=== PATIENT | male | born 1980 | race Caucasian/White ===

== ENCOUNTER 2023-03-28 17:23 | Emergency (ER) | payer MEDICAID ==
[~2023-03-28] VITALS: Ht 185.4 cm; Wt 81.0 kg
[~2023-03-28 17:23] MED LIST: ASPI-1265 PO; DABI150C PO; FOLI-43 PO; FURO-150 PO; MULT-785 PO; THIA100T70 PO
--- NOTE | 2023-03-28 18:04 | NUR ---
RN CALLED POISON CONTROL AND SPOKE WITH REP DOUGLASS TO REPORT PT OD. RN NOTIFIED THEM THAT THE PT STATES HE TOOK 30 TABLETS OF ELIQUIS EQUALING 150MG. PT ALSO REPORTS DRINKING WHISKEY AND BEER. PT HAS NO S/S ACTIVE BLEEDING AT THIS TIME. PER RAFAT PT SHOULD BE MONITORED FOR AT LEAST 24 HOURS AND MAYBE MORE IF THERE ARE BLEEDING COMPLICATIONS. IT WAS ALSO RECOMMENDED THAT PT GET A HEAD CT/RELOCATION COMMISSIONER/COAG LABS AND CBC Q6 HRS. IT WAS RECOMMENDED THAT IF THERE ARE SX OF ACTIVE BLEEDING ANDEXANET CHANTALE BE GIVEN HOWEVER THE HOSPITAL DOES NOT CARRY THIS MED SO THE ALTERNATIVE MED THAT CAN BE GIVEN IS ACTIVATED PROTHROMBIN COMPLEX CONCENTRATES AND FFP. POISON CONTROL ADVISED TO CALL THEM BACK IF PT HAS SX OF ACTIVE UNCONTROLLABLE BLEEDING. RN NOTIFIED DR IRAHETA OF THEIR RECOMMENDATIONS.
[2023-03-28 18:07] LABS: BASOPHILS # (AUTO) 0.1 X10'3 (0-0.2); BASOPHILS % (AUTO) 1.1 % (0-1); EOSINOPHILS # (AUTO) 0.2 X10'3 (0-0.9); EOSINOPHILS % (AUTO) 2.2 % (0-6); HEMATOCRIT 42.8 % (42.0-52.0); HEMOGLOBIN 14.2 g/dl (14.0-17.9); LYMPHOCYTES # (AUTO) 2.4 X10'3 (1.1-4.8); LYMPHOCYTES % (AUTO) 28.7 % (21-51); MEAN CORPUSCULAR HEMOGLOBIN 34.7 PG (27.0-31.0); MEAN CORPUSCULAR HGB CONC 33.2 g/dL (33.0-36.5); MEAN CORPUSCULAR VOLUME 104.5 FL (78-98); MEAN PLATELET VOLUME 6.3 FL (7.4-10.4); MONOCYTES # (AUTO) 0.5 X10'3 (0-0.9); MONOCYTES % (AUTO) 5.5 % (2-12); NEUTROPHILS # (AUTO) 5.2 X10'3 (1.8-7.7); NEUTROPHILS % (AUTO) 62.5 % (42-75); PLATELET COUNT 260 X10'3 (140-440); RED CELL DISTRIBUTION WIDTH 17.1 % (11.5-14.5); WHITE BLOOD COUNT 8.4 X10'3 (4.5-11.0)
[2023-03-28 18:09] LABS: BILIRUBIN,URINE NEGATIVE (Neg); CLARITY,URINE CLEAR (Clear); COLOR,URINE STRAW (Yellow); GLUCOSE, URINE NEGATIVE (Neg); KETONES,URINE NEGATIVE (Neg); LEUKOCYTE ESTERASE ,URINE NEGATIVE (Neg); NITRITES, URINE NEGATIVE (Neg); OCCULT BLOOD,URINE NEGATIVE (Neg); PROTEIN,URINE NEGATIVE (Neg); UROBILINOGEN,URINE 0.2 E.U/dL (0.2-1.0)
[2023-03-28 18:10] LABS: UA COLLECTION TYPE STRAIGHT CATH
[2023-03-28 18:15] LABS: APTT 38 SECONDS (22-32); INR 1.5 INR; PROTHROMBIN TIME 15.9 SECONDS (9.0-12.0)
[2023-03-28 18:20] LABS: ALANINE AMINOTRANSFERASE 13 U/L (12-78); ALBUMIN 3.2 G/DL (3.4-5.0); ALBUMIN/GLOBULIN RATIO 1.2 (1.1-1.5); ALKALINE PHOSPHATASE 64 IU/L (46-116); ANION GAP 14 (8-16); ASPARTATE AMINO TRANSFERASE 14 U/L (10-37); BILIRUBIN,TOTAL 0.3 MG/DL (0.1-1.0); BLOOD UREA NITROGEN 5 MG/DL (7-18); BUN/CREATININE RATIO 6.1 (10.0-20.0); CALCIUM 7.9 MG/DL (8.5-10.1); CHLORIDE 108 MMOL/L (99-107); CREATININE 0.82 MG/DL (0.60-1.10); GLUCOSE 99 MG/DL (70-104); POTASSIUM 3.4 MMOL/L (3.5-5.1); SODIUM 144 MMOL/L (135-145); TOTAL CARBON DIOXIDE 22.4 MMOL/L (24-32); TOTAL PROTEIN 5.9 G/DL (6.4-8.2); eCRCL 130 ML/MIN; eGFR > 90 ML/MIN
[2023-03-28 18:22] LABS: SALICYLATE 4.2 MG/DL (4.0-20.0)
[2023-03-28 18:30] LABS: ETHANOL 0.319 GM/DL (0.0-0.010)
[2023-03-28 18:36] LABS: URINE AMPHETAMINE SCREEN NEGATIVE (Neg); URINE BARBITUATE SCREEN NEGATIVE (Neg); URINE BENZODIAZEPINES SCREEN NEGATIVE (Neg); URINE CANNABINOID SCREEN POSITIVE (Neg); URINE COCAINE SCREEN NEGATIVE (Neg); URINE METHADONE SCREEN NEGATIVE (Neg); URINE OPIATE SCREEN NEGATIVE (Neg); URINE PHENCYCLIDINE SCREEN NEGATIVE (Neg)
[2023-03-28] MEDS ORDERED: normal saline 1000ML IV soln IVB ONE (18:40)
[2023-03-28 18:50] LABS: ACETAMINOPHEN < 2.0 UG/ML (10-30)
--- NOTE | 2023-03-28 18:53 | NUR ---
Patient resting on gurney, hostile still just wants everyone to leave him alone so he can just go to sleep somewhere and .
--- NOTE | 2023-03-28 19:11 | NUR ---
PT STATED THAT HE "TOOK A BUNCH OF PILLS" RN ASKED WHAT PILLS AND HE SAID ELIQUIS AND GABAPENTIN. DR IRAHETA AT BEDSIDE AND REQUESTED RN CALL POISON CONTROL AND UPDATE THEM. RN CALLED POISON CONTROL AND SPOKE WITH REP DOUGLASS. PER RAFAT RISK FOR PT BEING DROWSY AND HYPOTENSION. POSION CONTROL RECOMMENDED RESIDENTIAL SALES MANAGER AND FLUIDS/PRESSORS IF PT BECOMES HYPOTENSIVE. RN NOTIFIED NIKKIE MAIN AND DR IRAHETA.
--- NOTE | 2023-03-28 20:27 | NUR ---
Patient to CT
--- NOTE | 2023-03-28 20:48 | NUR ---
Patient's sister "Etta" cld inquiring about him, the patient gave me permission to talk with her. I advised the patient was stable and on a mental health hold.
[2023-03-28] MEDS ORDERED: haloperidol lactate 5mg/ml inj IM ONE (20:55)
[2023-03-28] MEDS ORDERED: traMADol 50MG tablet PO ONE (21:00)
[2023-03-28] MEDS ORDERED: LORazepam 2 mg/ml vial IV ONE (21:05)
--- NOTE | 2023-03-28 22:00 | NUR ---
Patient continues to be verbally disruptive and wants to be up walking around despite being unsteady on his feet. He has been given both Ativan and Haldol now, a hospital bed had been put in room. Security has been monitoring the patient.
[2023-03-29 00:18] LABS: HEMATOCRIT 39.8 % (42.0-52.0); HEMOGLOBIN 13.5 g/dl (14.0-17.9); MEAN CORPUSCULAR HEMOGLOBIN 35.8 PG (27.0-31.0); MEAN CORPUSCULAR VOLUME 105.3 FL (78-98); MEAN PLATELET VOLUME 6.4 FL (7.4-10.4); PLATELET COUNT 256 X10'3 (140-440); RED BLOOD COUNT 3.78 X10'6 (4.70-6.10); RED CELL DISTRIBUTION WIDTH 18.1 % (11.5-14.5); WHITE BLOOD COUNT 6.3 X10'3 (4.5-11.0)
--- NOTE | 2023-03-29 06:00 | NUR ---
Assumed care of Pt. He is laying down resting. Pt is calm.
--- NOTE | 2023-03-29 07:15 | NUR ---
Pt laying down resting, Pt educated to POC, Pt in agreement.
[2023-03-29 07:57] LABS: BASOPHILS # (AUTO) 0.1 X10'3 (0-0.2); BASOPHILS % (AUTO) 0.9 % (0-1); EOSINOPHILS # (AUTO) 0.2 X10'3 (0-0.9); HEMOGLOBIN 13.9 g/dl (14.0-17.9); LYMPHOCYTES # (AUTO) 2.2 X10'3 (1.1-4.8); LYMPHOCYTES % (AUTO) 24.8 % (21-51); MEAN CORPUSCULAR HGB CONC 33.1 g/dL (33.0-36.5); MEAN PLATELET VOLUME 6.7 FL (7.4-10.4); MONOCYTES # (AUTO) 0.7 X10'3 (0-0.9); MONOCYTES % (AUTO) 7.5 % (2-12); NEUTROPHILS # (AUTO) 5.7 X10'3 (1.8-7.7); NEUTROPHILS % (AUTO) 64.8 % (42-75); PLATELET COUNT 259 X10'3 (140-440); RED BLOOD COUNT 3.96 X10'6 (4.70-6.10); RED CELL DISTRIBUTION WIDTH 17.7 % (11.5-14.5); WHITE BLOOD COUNT 8.8 X10'3 (4.5-11.0)
--- NOTE | 2023-03-29 08:36 | NUR ---
Pt in bed laying down resting w/ his eyes closed. No statements of harming himself. Pt denied any SI.
--- NOTE | 2023-03-29 08:38 | NUR ---
Pt sitting on the side of the bed eating, calm and cooperative.
[2023-03-29 09:21] LABS: COVID19 ANTIGEN BINAX NEGATIVE (NEGATIVE)
--- NOTE | 2023-03-29 09:40 | NUR ---
Patient ambulatory from the main ER to ER overflow accompanied by RN. He changed into green unit scrubs and was receptive to 1:1 assessment. Pt acknowledges overdose attempt yet denies SI at this time. Pt endorsing that he "had a bad day yesterday". Pt stating that he wants to go home and misses his dogs. He lives with his uncle and his cousin and is able to return to their home. He is noted to be guarded and irritable during assessment. Pt denies HI, AH or VH. He is noted sitting in his room at this time with no s/s of distress. Will continue to monitor.
--- NOTE | 2023-03-29 09:50 | NUR ---
Packet faxed to [facility]ad office
[2023-03-29] MEDS ORDERED: potassium Cl 20 mEq SR tablet PO STA (10:16)
[2023-03-29] MEDS ORDERED: LORazepam 1 MG tablet PO ONE (10:20)
--- NOTE | 2023-03-29 10:34 | NUR ---
Car ANDERSEN, evaluating patient.
[2023-03-29 10:36] LABS: INR 1.2 INR
--- NOTE | 2023-03-29 11:12 | NUR ---
Met with patient in regards to substance/alcohol use and to see if patient was interested in resources for treatment options. Patient is interested in resources. I gave patient a card for [facility], a list of resources and my card to calm me if he has any questions.
[2023-03-29] MEDS ORDERED: acetaminophen 325mg tablet PO ONE (11:15)
[2023-03-29 11:20] VITALS: BP 150/96; PULSE 72; RESP 16; TEMP 98.2; O2SAT 100
--- NOTE | 2023-03-29 11:30 | NUR ---
20G PERIPHERAL IV REMOVED FROM PT'S LEFT FOREARM. CANNULA TIP INTACT UPON REMOVAL. NO REDNESS OR SWELLING AT IV SITE. PT TOLERATED WELL WITH NO C/O PAIN.
== END 2023-03-29 11:40 | disposition home or self-care (01) ==
LOC: ER 17:23
DX: T42.6X1A Poisoning by other antiepileptic and sedative-hypnotic drugs, accidental (unintentional), initial encounter (principal); Z20.822 Contact with and (suspected) exposure to COVID-19; T45.511A Poisoning by anticoagulants, accidental (unintentional), initial encounter; F10.129 Alcohol abuse with intoxication, unspecified; I50.9 Heart failure, unspecified; F17.200 Nicotine dependence, unspecified, uncomplicated; F12.90 Cannabis use, unspecified, uncomplicated; Z91.013 Allergy to seafood; Z79.82 Long term (current) use of aspirin; Z79.899 Other long term (current) drug therapy; Y92.89 Other specified places as the place of occurrence of the external cause; Y90.9 Presence of alcohol in blood, level not specified
CPT/HCPCS: 36415; 70450; 80053; 80305; 80320; 80329; 81003; 85025; 85027; 85610; 85730; 87811; 93005; 96361; 96372; 96374; 99285; A6258; J1630; J2060; J7030; A6449; C1758

== ENCOUNTER 2023-10-14 16:54 | Emergency (ER) | payer MEDICAID ==
[~2023-10-14] VITALS: Ht 185.4 cm; Wt 77.1 kg
[2023-10-14 16:55] VITALS: BP 126/90; PULSE 115; RESP 16; TEMP 97.7; O2SAT 98
[2023-10-14 17:27] LABS: BASOPHILS # (AUTO) 0.1 X10'3 (0-0.2); EOSINOPHILS # (AUTO) 0.1 X10'3 (0-0.9); EOSINOPHILS % (AUTO) 1.4 % (0-6); HEMATOCRIT 49.9 % (42.0-52.0); HEMOGLOBIN 17.1 g/dl (14.0-17.9); LYMPHOCYTES # (AUTO) 2.2 X10'3 (1.1-4.8); LYMPHOCYTES % (AUTO) 22.3 % (21-51); MEAN CORPUSCULAR HEMOGLOBIN 38.1 PG (27.0-31.0); MEAN CORPUSCULAR HGB CONC 34.3 g/dL (33.0-36.5); MEAN CORPUSCULAR VOLUME 110.9 FL (78-98); MEAN PLATELET VOLUME 6.6 FL (7.4-10.4); MONOCYTES # (AUTO) 0.9 X10'3 (0-0.9); MONOCYTES % (AUTO) 8.5 % (2-12); NEUTROPHILS # (AUTO) 6.7 X10'3 (1.8-7.7); NEUTROPHILS % (AUTO) 66.8 % (42-75); PLATELET COUNT 290 X10'3 (140-440); RED BLOOD COUNT 4.49 X10'6 (4.70-6.10); RED CELL DISTRIBUTION WIDTH 13.9 % (11.5-14.5)
[2023-10-14 17:49] LABS: ANION GAP 12 (8-16); BLOOD UREA NITROGEN 5 MG/DL (7-18); BUN/CREATININE RATIO 5.6 (10.0-20.0); CALCIUM 8.4 MG/DL (8.5-10.1); CHLORIDE 96 MMOL/L (99-107); CREATININE 0.89 MG/DL (0.60-1.10); GLUCOSE 145 MG/DL (70-104); POTASSIUM 3.2 MMOL/L (3.5-5.1); PRO BRAIN NATRIURETIC PEPTIDE 41 PG/ML (0-125); SODIUM 132 MMOL/L (135-145); TOTAL CARBON DIOXIDE 23.8 MMOL/L (24-32); eCRCL 116 ML/MIN; eGFR > 90 ML/MIN
[2023-10-14 17:55] LABS: PLATELET ESTIMATE NORMAL
[2023-10-15] MEDS ORDERED: ONDA8TAB13 PO ×3 (20:57→21:16)
[2023-10-15] MEDS ORDERED: SUMA50TA PO ×3 (20:57→21:16)
== END 2023-10-14 20:21 | disposition home or self-care (01) ==
LOC: ER 16:55
DX: R51.9 Headache, unspecified (principal); R07.9 Chest pain, unspecified
CPT/HCPCS: 36415; 71045; 80048; 83880; 84484; 85008; 85025; 93005; 99285

== ENCOUNTER → 2023-10-15 | Emergency (ER) | payer MEDICAID ==
[~2023-10-15] VITALS: Ht 185.4 cm; Wt 76.3 kg
[~2023-10-15] MED LIST changes: +ONDA8TAB13 PO; +SUMA50TA PO; +diphenhydrAMINE 50 mg/ml inj IV ONE; +ketorolac trometh. 30mg/ml inj. IV ONE; +metoclopramide 5 mg/ml inj IV ONE; +normal saline 1000ml 1,000 ML IV ONE
[2023-10-15 17:44] LABS: BASOPHILS # (AUTO) 0.1 X10'3 (0-0.2); EOSINOPHILS # (AUTO) 0.2 X10'3 (0-0.9); LYMPHOCYTES # (AUTO) 2.7 X10'3 (1.1-4.8); MONOCYTES # (AUTO) 0.7 X10'3 (0-0.9); NEUTROPHILS # (AUTO) 5.7 X10'3 (1.8-7.7); WHITE BLOOD COUNT 9.4 X10'3 (4.5-11.0)
[2023-10-15 17:46] LABS: BASOPHILS % (AUTO) 1.1 % (0-1); EOSINOPHILS % (AUTO) 2.6 % (0-6); HEMATOCRIT 50.3 % (42.0-52.0); HEMOGLOBIN 17.4 g/dl (14.0-17.9); LYMPHOCYTES % (AUTO) 28.4 % (21-51); MEAN CORPUSCULAR HEMOGLOBIN 38.3 PG (27.0-31.0); MEAN CORPUSCULAR HGB CONC 34.5 g/dL (33.0-36.5); MEAN CORPUSCULAR VOLUME 110.8 FL (78-98); MEAN PLATELET VOLUME 6.5 FL (7.4-10.4); NEUTROPHILS % (AUTO) 60.9 % (42-75); PLATELET COUNT 294 X10'3 (140-440); RED BLOOD COUNT 4.54 X10'6 (4.70-6.10); RED CELL DISTRIBUTION WIDTH 13.8 % (11.5-14.5)
[2023-10-15 18:07] LABS: ALBUMIN 4.3 G/DL (3.4-5.0); ANION GAP 11 (8-16); BLOOD UREA NITROGEN 4 MG/DL (7-18); BUN/CREATININE RATIO 4.9 (10.0-20.0); CALCIUM 8.8 MG/DL (8.5-10.1); CHLORIDE 97 MMOL/L (99-107); CREATININE 0.81 MG/DL (0.60-1.10); GLUCOSE 106 MG/DL (70-104); POTASSIUM 3.6 MMOL/L (3.5-5.1); PRO BRAIN NATRIURETIC PEPTIDE < 30 PG/ML (0-125); SODIUM 134 MMOL/L (135-145); TOTAL CARBON DIOXIDE 26.1 MMOL/L (24-32); eCRCL 126 ML/MIN; eGFR > 90 ML/MIN
[2023-10-15 21:36] VITALS: BP 117/74; PULSE 79; RESP 12; TEMP 97.6; O2SAT 97
== END | disposition home or self-care (01) ==
LOC: ER 15:47
DX: G43.909 Migraine, unspecified, not intractable, without status migrainosus (principal); R07.9 Chest pain, unspecified; I11.0 Hypertensive heart disease with heart failure; F12.10 Cannabis abuse, uncomplicated; Z79.899 Other long term (current) drug therapy
CPT/HCPCS: 36415; 70450; 71045; 80048; 83880; 84484; 85025; 93005; 96374; 96375; 99285; J1200; J1885; J2765; J7030

== ENCOUNTER 2023-11-25 08:51 | Outpatient (CLI) | payer MEDICAID ==
[~2023-11-25 08:51] MED LIST changes: -diphenhydrAMINE 50 mg/ml inj IV ONE; -ketorolac trometh. 30mg/ml inj. IV ONE; -metoclopramide 5 mg/ml inj IV ONE; -normal saline 1000ml 1,000 ML IV ONE
== END 2023-11-25 23:59 | disposition home or self-care (01) ==
LOC: VAS 08:51
PROVIDERS: ATTEND Family Medicine
DX: M79.605 Pain in left leg (principal)
CPT/HCPCS: 93971

== ENCOUNTER 2025-02-28 09:19 | Outpatient (CLI) | payer MEDICAID ==
[~2025-02-28 09:19] MED LIST changes: +ONDA-245 PO; -ONDA8TAB13 PO
--- NOTE | 2025-02-28 11:54 | VASCULAR REPORT ---
CLINICAL HISTORY: Factor 5 Leiden, pain and right upper extremity . TECHNIQUE: Color and duplex doppler imaging of the right upper extremity veins and right subclavian v ein was performed. Vessel compression if possible was also performed. WID: COMPARISON: VASC VL VENOUS on DOS: 11/25/23 FINDINGS: The right internal jugular, axillary, basilic, cephalic, brachial, radial, and ulnar veins veins are patent and demonstrate normal compressibility and flow. The bilateral subclavian is patent. IMPRESSION: NO SONOGRAPHIC EVIDENCE FOR DEEP VENOUS THROMBOSIS IN THE RIGHT UPPER EXTREMITY VEINS.
== END 2025-02-28 23:59 | disposition home or self-care (01) ==
LOC: RAD 09:19
PROVIDERS: ATTEND Nurse Practitioner
DX: I80.9 Phlebitis and thrombophlebitis of unspecified site (principal)
CPT/HCPCS: 93971

== ENCOUNTER 2025-04-28 16:18 | Emergency (ER) | payer MEDICAID ==
[~2025-04-28] VITALS: Ht 185.4 cm; Wt 75.8 kg
[2025-04-28 16:59] LABS: MEAN PLATELET VOLUME 7.1 FL (7.4-10.4); RED CELL DISTRIBUTION WIDTH 14.8 % (11.5-14.5)
--- NOTE | 2025-04-28 17:07 | Physician Documentation ---
History of Present Illness ~ Chief Complaint: Chest Pain Stated Complaint: CHEST PAIN Time Seen by MD: 17:10 OK to notify your PCP?: Yes Primary Medical Doctor: None Source: patient Mode of Arrival: POV Exam Limitations: no limitations HPI 45-year-old male presents with chest pain since . He was seen earlier today at [facility] and discharged for chest pain and had a full cardiac workup including EKG, troponins, chest x-ray with no abnormalities. On , he took a medication for erectile dysfunction. He does have a pacemaker. Upon further discussion patient states that his pain is worse after eating. does have a history of using alcohol. Day of Onset: Apr 28, 2025 Medication Reconciliation Allergies: Coded Allergies: No Known Drug Allergies (Verified Allergy, Unknown, 04/28/25) Uncoded Allergies: shellfish (Adverse Reaction, Unknown, 07/26/13) Scheduled Aspirin (Aspirin), 1 TAB.CHEW PO DAILY Dabigatran (PRADAXA capsule), 1 CAP PO BID Folic Acid* (Folic Acid*), 1 TAB PO DAILY, (Reported) Furosemide* (Lasix*), 1 TAB PO DAILY, (Reported) Multivitamins* (Multivitamin*), 1 EACH PO DAILY, (Reported) Omeprazole (Prilosec), 1 CAP PO DAILY Ondansetron 8mg ODT (Ondansetron Odt), 1 TAB PO Q8H Thiamine Mononitrate (Vitamin B-1), 100 MG PO DAILY, (Reported) Scheduled PRN Sumatriptan Succinate* (Imitrex*), 1 TAB PO PRN PRN for headache Past Medical History Past Medical History: Atrial Fibrillation, Congestive Heart Failure, *GI/HEPATOBILIARY*, Hernia Past Surgical History: orthopedic surgeries, tonsillectomy Other Past Surgical History: Inguinal Hernia Surgery Alcohol Use: Alcoholic Drug Use: marijuana Lives with: S/O Lives In: Home Occupation: employed Review of Systems All Other Systems at this time: Reviewed and Negative ROS As stated above in the HPI, otherwise all systems are reviewed and negative. Physical Exam Vital Signs: RN Vital Signs have been reviewed: Yes, Temperature: 97.5, Source: Temporal, Heart Rate: 118, Respiratory Rate: 18, BP: 122/89, Pulse Oximetry: 97, Weight: 75.800 Oxygen Flow Rate: 0 Pulse Oximetry Reflects: adequate oxygenation Physical Exam General: Alert, no distress. HEENT: No injection, moist mucous membranes. Neck: Full range of motion. Respiratory: No respiratory distress, equal chest rise and fall. Chest: No accessory muscle use. Cardiovascular: Regular rate and rhythm. Gastrointestinal: Nondistended. Extremities: Normal range of motion, no deformity. Neurologic: Oriented x4. Psychiatric: Normal mood and affect. Skin: Normal color, warm and dry. Progress Results/Orders Results/Orders Completed Orders - EH PANG NP Mag & Alum Hydrox/Simeth Susp (Maalox Or (04/28/25 18:15) Lidocaine 2% Viscous (Xylocaine 2% Visco (04/28/25 18:15) Medications Received in ER Medications (Trade) Dose Ordered Sig/Conner Route PRN Reason Start Time Stop Time Status Last Admin Dose Admin (Maalox oral suspension) 30 ml ONCE ONCE PO 04/28/25 18:15 04/28/25 18:16 DC 04/28/25 18:22 30 ML (Xylocaine 2% Viscous 15mL cup) 15 ml Q4H PRN MM sore throat 04/28/25 18:15 04/28/25 18:48 DC 04/28/25 18:22 15 ML Vital Signs 04/28/25 04/28/25 16:39 18:46 Temp 97.5 98.6 Pulse 118 99 Resp 18 18 B/P (MAP) 122/89 124/88 Pulse Ox 97 99 O2 Flow Rate 0 Laboratory Tests Test 04/28/25 16:29 04/28/25 17:10 White Blood Count 8.8 Red Blood Count 4.13 L Hemoglobin 16.6 Hematocrit 48.3 Mean Corpuscular Volume 116.9 H Mean Corpuscular Hemoglobin 40.3 H Mean Corpuscular Hemoglobin Concent 34.5 Red Cell Distribution Width 14.8 H Platelet Count 237 Mean Platelet Volume 7.1 L Neutrophils (%) (Auto) 57.3 Lymphocytes (%) (Auto) 30.4 Monocytes (%) (Auto) 8.6 Eosinophils (%) (Auto) 2.8 Basophils (%) (Auto) 0.9 Neutrophils # (Auto) 5.0 Lymphocytes # (Auto) 2.7 Monocytes # (Auto) 0.8 Eosinophils # (Auto) 0.2 Basophils # (Auto) 0.1 CBC Comment Differential Total Cells Counted 100 Neutrophils % (Manual) 53.0 Lymphocytes % (Manual) 30.0 Monocytes % (Manual) 12.0 Eosinophils % (Manual) 5.0 Platelet Estimate Normal Red Blood Cell Morphology Perf Basophilic Stippling Macrocytosis 2+ Sodium Level 133 L Potassium Level 3.3 L Chloride Level 98 L Carbon Dioxide Level 20.9 L Anion Gap 14 Blood Urea Nitrogen 4 L Creatinine 0.72 Estimated GFR/1.73 m2 > 90 BUN/Creatinine Ratio 5.6 L Glucose Level 194 H Calcium Level 8.5 Troponin I High Sensitivity < 4 L Troponin I High Sens Percent Delta Troponin I Hi Sens Absolute Change Pro-B-Type Natriuretic Peptide < 30 Albumin 3.6 Chemistry Comments Urine Opiates Screen Negative Urine Methadone Screen Negative Urine Fentanyl Screen Negative Urine Barbiturates Screen Negative Urine Phencyclidine Screen Negative Urine Amphetamines Screen Negative Urine Benzodiazepines Screen Negative Urine Cocaine Screen Negative Urine Cannabinoids Screen Negative Drug Screen Comment Departure Disposition: HOME / SELF CARE / HOMELESS Impression: Primary Impression: ALCOHOLISM Additional Impressions: Abdominal pain Alcoholic gastritis Condition: Stable Discharge Instructions: Gastritis, Adult Referrals: NO PRIMARY CARE PROVIDER (PCP) Prescriptions Omeprazole (Prilosec) 40 Mg Capsule 1 CAP PO DAILY for 30 Days, #30 CAP Prov: EH PANG NP 04/28/25 Additional Comment Medical Screen Exam This patient recieved a medical screening examination. After reviewing the individual's medical complaints with presenting symptoms and performing an appropriate physical examination, it was determined that no immediate life- threatening emergency medical condition is present. This individual is also not a women having contractions. Signature Scribe Signature: g Attestation: Scribed for Eh Pang Np by Eh Barbour NP . 04/28/25 22:40 MAMI BECKHAM Apr 28, 2025 17:07 EH PANG NP Apr 28, 2025 17:18
[2025-04-28 17:13] LABS: CREATININE 0.72 MG/DL (0.60-1.10); PRO BRAIN NATRIURETIC PEPTIDE < 30 PG/ML (0-125); TOTAL CARBON DIOXIDE 20.9 MMOL/L (24-32); eCRCL 137 ML/MIN; eGFR > 90 ML/MIN
[2025-04-28 17:25] LABS: EOSINOPHILS % (MANUAL) 5.0 % (0-6); LYMPHOCYTES % (MANUAL) 30.0 % (21-51); MONOCYTES % (MANUAL) 12.0 % (2-12); NEUTROPHILS % (MANUAL) 53.0 % (42-75)
[2025-04-28 17:26] LABS: PLATELET ESTIMATE NORMAL
--- NOTE | 2025-04-28 17:50 | RADIOLOGY REPORT ---
CHEST RADIOGRAPH Indication: CP Technique: Single frontal view of the chest was obtained COMPARISON: DI CHEST,SINGLE VIEW on DOS: 10/15/23, DI CHEST,SINGLE VIEW on DOS: 10/14/23 FINDINGS: Lines and Tubes: Pacemaker/AICD in the left upper chest with 2 cardiac leads. Sternal wires in place Lungs: Clear Pleura: No effusion. No pneumothorax. Cardiomediastinal contours: Unremarkable Bones: Unremarkable IMPRESSION: 1. No acute disease.
[2025-04-28 18:02] LABS: URINE AMPHETAMINE SCREEN NEGATIVE (Neg); URINE BARBITUATE SCREEN NEGATIVE (Neg); URINE BENZODIAZEPINES SCREEN NEGATIVE (Neg); URINE CANNABINOID SCREEN NEGATIVE (Neg); URINE COCAINE SCREEN NEGATIVE (Neg); URINE METHADONE SCREEN NEGATIVE (Neg); URINE OPIATE SCREEN NEGATIVE (Neg); URINE PHENCYCLIDINE SCREEN NEGATIVE (Neg)
[2025-04-28] MEDS: LIDOcaine 2% Viscous 15ml cup MM PRN (18:22)
[2025-04-28] MEDS: mag hydrox/Alum hydrox/simeth 30ml oral suspension PO ONE (18:22)
[2025-04-28] MEDS ORDERED: OMEP40CA21 PO (18:39)
[2025-04-28 18:46] VITALS: BP 124/88; PULSE 99; RESP 18; TEMP 98.6; O2SAT 99
--- NOTE | 2025-04-29 06:06 | ELECTROCARDIOGRAPH REPORT ---
[facility] Test Date: 2025-04-28 Test Time: 16:24:38 Pat Name: ARON ALEX Department: EMERGENCY ROOM Patient ID: [id number] Room: Gender: M Solution Designer: KLAUS : 1980 Requested By: KI RILEY Order Number: [id number] Reading MD: Dr. Ki Riley Measurements Intervals [place] Rate: 110 P: 52 ME: 156 QRS: 65 QRSD: 104 T: 53 QT: 357 QTc: 484 Interpretive Statements Sinus tachycardia Left atrial enlargement Borderline T wave abnormalities Borderline prolonged QT interval Electronically Signed On 04-29-2025 6:16:[address] Ki Riley Please click the below link to view image of tracing.
== END 2025-04-28 18:48 | disposition home or self-care (01) ==
LOC: ER 16:20
DX: K29.20 Alcoholic gastritis without bleeding (principal); F10.20 Alcohol dependence, uncomplicated; I48.91 Unspecified atrial fibrillation; I50.9 Heart failure, unspecified; F12.90 Cannabis use, unspecified, uncomplicated; Z95.0 Presence of cardiac pacemaker; Z79.899 Other long term (current) drug therapy; Z79.82 Long term (current) use of aspirin; Y90.9 Presence of alcohol in blood, level not specified
CPT/HCPCS: 71045; 80048; 80305; 83880; 84484; 85007; 85025; 93005; 99285

== ENCOUNTER 2025-05-17 13:06 | Outpatient (CLI) | payer MEDICAID ==
[~2025-05-17 13:06] MED LIST changes: +OMEP40CA21 PO
[2025-05-17 14:00] LABS: MEAN PLATELET VOLUME 6.5 FL (7.4-10.4); PRE OP HEMATOCRIT 43.3 % (42.0-52.0); PRE OP HEMOGLOBIN 15.1 g/dL (14.0-17.9); PRE OP PLATELET COUNT 186 X10'3 (140-440); PRE OP WHITE BLOOD COUNT 7.4 10'3 (4.8-10.8); RED CELL DISTRIBUTION WIDTH 15.6 % (11.5-14.5)
[2025-05-17] MEDS ORDERED: ACET-3669 PO (14:00)
[2025-05-17] MEDS ORDERED: APIX5TAB3 PO (14:00)
[2025-05-17] MEDS ORDERED: CARV3.1244 PO (14:00)
[2025-05-17] MEDS ORDERED: OMEP20CA16 PO (14:00)
[2025-05-17] MEDS ORDERED: GABA300T28 (14:00)
[2025-05-17] MEDS ORDERED: LISI5TAB22 (14:00)
[2025-05-17 14:01] LABS: LEUKOCYTE ESTERASE ,URINE NEGATIVE (Neg); NITRITES, URINE NEGATIVE (Neg); OCCULT BLOOD,URINE NEGATIVE (Neg)
[2025-05-17 14:09] LABS: UA COLLECTION TYPE NON-SPECIFIED
[2025-05-17 14:11] LABS: MUCUS STRANDS FEW /LPF (Neg); SQUAMOUS EPITHELIAL CELL,UR FEW /LPF (FEW)
[2025-05-17 14:16] LABS: CREATININE 0.85 MG/DL (0.60-1.10); PRE OP ALT 49 U/L (30-65); PRE OP ANION GAP 11 (8-16); PRE OP AST 55 U/L (10-37); PRE OP BILIRUB, TOTAL 0.5 MG/DL (0.0-1.0); PRE OP GLUCOSE 99 MG/DL (70-104); PRE OP POTASSIUM 3.8 MMOL/L (3.4-5.1); PRE OP SODIUM 139 MMOL/L (135-145); TOTAL CARBON DIOXIDE 25.5 MMOL/L (24-32); eGFR > 90 ML/MIN
[2025-05-17 14:20] LABS: PLATELET ESTIMATE NORMAL
== END 2025-05-17 23:59 | disposition home or self-care (01) ==
LOC: LAB 13:06 → EDSTATUS 05-23 18:15
PROVIDERS: ATTEND Podiatrist Foot & Ankle Surgery
DX: Z01.812 Encounter for preprocedural laboratory examination (principal); M19.071 Primary osteoarthritis, right ankle and foot; M25.472 Effusion, left ankle
CPT/HCPCS: 36415; 80053; 81001; 85008; 85025; J7120